=== PATIENT | female | born 1995 | race Caucasian/White ===

== ENCOUNTER 2023-08-16 00:23 | Emergency (ER) | payer OTHER ==
[~2023-08-16] VITALS: Ht 170.2 cm; Wt 120.2 kg
[2023-08-16 01:06] LABS: BASOPHILS # (AUTO) 0.1 K/UL (0.0-0.2); BASOPHILS % (AUTO) 0.6 % (0.0-2.0); EOSINOPHILS % (AUTO) 0.5 % (0.0-7.0); HEMATOCRIT 37.6 % (31.2-41.9); HEMOGLOBIN 12.4 g/dL (10.9-14.3); LYMPHOCYTES # (AUTO) 3.3 K/uL (0.8-4.8); MEAN CORPUSCULAR HEMOGLOBIN 28.3 uug (24.7-32.8); MEAN CORPUSCULAR HGB CONC 33 g/dL (32.3-35.6); MONOCYTES # (AUTO) 0.5 K/uL (0.1-1.30); MONOCYTES % (AUTO) 5.6 % (0.0-11.0); NEUTROPHILS # (AUTO) 5.2 K/uL (1.8-8.9); NEUTROPHILS % (AUTO) 57.3 % (38.5-71.5); PLATELET COUNT (AUTO) 284 K/uL (179-408); RED BLOOD CELL COUNT(AUTO) 4.37 MIL/uL (3.63-4.92); RED CELL DISTRIBUTION WIDTH 14.2 % (12.3-17.7); WHITE BLOOD COUNT (AUTO) 9.1 K/uL (3.8-11.8)
[2023-08-16 01:07] LABS: *BILIRUBIN,URIN NEGATIVE (NEGATIVE); *BLOOD, URINE NEGATIVE (NEGATIVE); *CLARITY,URINE CLEAR (CLEAR); *COLOR,URINE YELLOW (YELLOW); *KETONES,URINE NEGATIVE (NEGATIVE); *PROTEIN,URINE NEGATIVE (NEGATIVE); *UROBILINOGEN,URINE 0.2 E.U./dl (NORMAL); LEUKOCYTE ESTERASE ,URINE NEGATIVE (NEGATIVE); NITRITE, URINE NEGATIVE (NEGATIVE); PH,URINE 5.5 (5.0-8.0); UGLUCOSE NEGATIVE (NEGATIVE)
[2023-08-16 01:36] LABS: DIFFERENTIAL COMMENT 1
[2023-08-16 01:39] LABS: *URINE HCG, QUAL NEGATIVE (NEGATIVE)
[2023-08-16 01:54] LABS: CALCIUM 9.4 mg/dL (8.5-10.1); CREATININE 0.7 mg/dL (0.6-1.3); POTASSIUM 3.8 mmol/L (3.5-5.1)
[2023-08-16] MEDS ORDERED: KETOROLAC TROMETHAMINE 30 MG INJ ONE (01:54)
[2023-08-16 02:00] LABS: ALBUMIN 3.6 g/dL (3.4-5.0); BILIRUBIN,TOTAL 0.2 mg/dL (0.2-1.0); TOTAL PROTEIN, SERUM 7.1 g/dL (6.4-8.2)
[2023-08-16] MEDS ORDERED: KETOROLAC TROMETHAMINE 30 MG INJ IM ONE (02:15)
[2023-08-16] MEDS ORDERED: NAPR500T6 PO (04:26)
[2023-08-16 04:52] VITALS: BP 138/79; TEMP 98; O2SAT 98
== END 2023-08-16 04:52 | disposition home or self-care (01) ==
LOC: ER 00:26
DX: R10.2 Pelvic and perineal pain (principal); N93.9 Abnormal uterine and vaginal bleeding, unspecified; Z98.890 Other specified postprocedural states; Z79.899 Other long term (current) drug therapy
CPT/HCPCS: 99285; 74176; 76856; 80053; 81003; 84703; 83690; 85025; 36415; 96372; J1885; A4606; A4663